=== PATIENT | female | born 1980 | race Caucasian/White ===

== ENCOUNTER 2016-11-19 18:24 | Inpatient (IN) | payer OTHER ==
[~2016-11-19] VITALS: Ht 163 cm; Wt 80.3 kg
[2016-11-19] MEDS ORDERED: PREN1TAB80 PO (18:53)
[2016-11-19] MEDS ORDERED: RINGERS SOLUTION,LACTATED 1,000 ML IV PRN (19:29)
[2016-11-19] MEDS ORDERED: OXYTOCIN 30 UNITS/LACT RINGERS 500 ML IV ONE (19:29)
[2016-11-19] MEDS ORDERED: CITRIC ACID/SODIUM CITRATE 30 ML SOLUTION UDCUP PO PRN (19:30)
[2016-11-19] MEDS ORDERED: METOCLOPRAMIDE HCL 5 MG/ML 2 ML VIAL IVP PRN (19:30)
[2016-11-19] MEDS ORDERED: FentaNYL CITRATE-PF 100 MCG/2 ML VIAL IVP PRN (19:30)
[2016-11-19 19:31] LABS: GLUCOSE COMMENT 1 Doctor Notified; GLUCOSE,POINT OF CARE 95 MG/DL (70-110)
[2016-11-19 19:53] LABS: BASOPHILS % (AUTO) 0.1 % (0.0-2.0); EOSINOPHILS % (AUTO) 0.2 % (1.0-6.0); HEMATOCRIT 38.2 % (36-46); HEMOGLOBIN 12.6 g/dL (12.0-16.0); LYMPHOCYTES # (AUTO) 1.7 K/uL (1.0-4.8); LYMPHOCYTES % (AUTO) 17.2 % (22.0-44.0); MEAN CORPUSCULAR HEMOGLOBIN 29.2 pg (26.0-34.0); MEAN CORPUSCULAR HGB CONC 32.9 G/dL (31.0-37.0); MEAN CORPUSCULAR VOLUME 89 fL (80-100); MONOCYTES # (AUTO) 0.7 K/uL (0.1-1.0); MONOCYTES % (AUTO) 6.7 % (2.0-9.0); NEUTROPHILS # (AUTO) 7.6 K/uL (1.8-7.7); NEUTROPHILS % (AUTO) 75.8 % (40.0-70.0); RED BLOOD CELL COUNT(AUTO) 4.31 MIL/uL (4.00-5.20); RED CELL DISTRIBUTION WIDTH 15.9 % (11.5-14.5); WHITE BLOOD COUNT (AUTO) 10.1 K/uL (4.5-11.0)
[2016-11-19] MEDS ORDERED: OXYGEN THERAPY IH SCH (20:00)
[2016-11-19 20:04] VITALS: BP 125/75
[2016-11-19] MEDS: RINGERS SOLUTION,LACTATED 1,000 ML IV SCH (20:22)
[2016-11-19] MEDS ORDERED: LIDOCAINE HCL/PF 2% 5 ML VIAL ONE (20:27)
[2016-11-19] MEDS ORDERED: BUPIVACAINE HCL/PF 0.25% 10 ML VIAL ONE (20:27)
[2016-11-19] MEDS ORDERED: FentaNYL/BUPIV 0.125%/NS/PF 200 ML ED ONE (20:28)
[2016-11-20] MEDS: RINGERS SOLUTION,LACTATED 1,000 ML IV SCH ×2 (00:49→09:56)
[2016-11-20] MEDS ORDERED: FentaNYL/BUPIV 0.125%/NS/PF 200 ML ED PRN (03:38)
[2016-11-20] MEDS ORDERED: PROMETHAZINE HCL 12.5 MG in SODIUM CHLORIDE 0.9% 50 ML IV PRN (03:45)
[2016-11-20] MEDS ORDERED: DiphenhydrAMINE HCL 50 MG/ML VIAL IVP PRN ×2 (03:45→13:15)
[2016-11-20] MEDS ORDERED: NALBUPHINE HCL 10 MG/ML VIAL IVP PRN ×4 (03:45→13:15)
[2016-11-20] MEDS ORDERED: OXYTOCIN 30 UNITS/LACT RINGERS 500 ML IV PRN (04:54)
[2016-11-20] MEDS ORDERED: LIDOCAINE HCL 2%/EPI 1:200,000/PF 10 ML VIAL ONE (10:27)
[2016-11-20] MEDS ORDERED: FentaNYL CITRATE-PF 100 MCG/2 ML VIAL IVP ONE (12:00)
[2016-11-20] MEDS ORDERED: GUM MASTIC/STORAX/MSAL/ALCOHOL LIQUID 0.67 ML VIAL TP ONE ×2 (12:10→12:38)
[2016-11-20] MEDS ORDERED: IBUPROFEN 800 MG TABLET PO PRN (13:00)
[2016-11-20] MEDS ORDERED: OxyCODONE HCL/ACETAMINOPHEN 5-325 MG TABLET PO PRN ×2 (13:00)
[2016-11-20] MEDS ORDERED: LANOLIN 7 GM OINTMENT TP PRN (13:00)
[2016-11-20] MEDS ORDERED: METHYLERGONOVINE MALEATE 0.2 MG TABLET PO PRN (13:00)
[2016-11-20] MEDS ORDERED: ONDANSETRON HCL 4 MG/2 ML VIAL IVP PRN (13:15)
[2016-11-20] MEDS ORDERED: OXYGEN THERAPY IH SCH ×3 (13:15)
[2016-11-20] MEDS ORDERED: MEPERIDINE-PF 25 MG/ML SYRINGE IVP PRN (13:15)
[2016-11-20] MEDS ORDERED: NALOXONE HCL 0.4 MG/ML VIAL IVP PRN (13:15)
[2016-11-20] MEDS: NALBUPHINE HCL 10 MG/ML VIAL IVP SCH ×2 (15:50→21:45)
[2016-11-20] MEDS: DEXTROSE 5%-LACTATED RINGERS 1,000 ML IV SCH (16:49)
[2016-11-20] MEDS: FentaNYL CITRATE-PF 100 MCG/2 ML VIAL IVP PRN ×2 (16:56→19:59)
[2016-11-20] MEDS: CeFAZolin 2 GM/DEXTROSE 50 ML IV SCH (19:59)
[2016-11-21] MEDS: DEXTROSE 5%-LACTATED RINGERS 1,000 ML IV SCH (01:46)
[2016-11-21] MEDS: NALBUPHINE HCL 10 MG/ML VIAL IVP SCH ×2 (03:57→09:47)
[2016-11-21] MEDS: CeFAZolin 2 GM/DEXTROSE 50 ML IV SCH (03:59)
[2016-11-21 06:55] LABS: BASOPHILS % (AUTO) 0.2 % (0.0-2.0); EOSINOPHILS % (AUTO) 0.2 % (1.0-6.0); HEMATOCRIT 32.9 % (36-46); HEMOGLOBIN 10.8 g/dL (12.0-16.0); LYMPHOCYTES # (AUTO) 1.3 K/uL (1.0-4.8); LYMPHOCYTES % (AUTO) 13.1 % (22.0-44.0); MEAN CORPUSCULAR HEMOGLOBIN 29.2 pg (26.0-34.0); MEAN CORPUSCULAR HGB CONC 32.7 G/dL (31.0-37.0); MEAN CORPUSCULAR VOLUME 89 fL (80-100); MONOCYTES # (AUTO) 0.6 K/uL (0.1-1.0); NEUTROPHILS # (AUTO) 7.9 K/uL (1.8-7.7); NEUTROPHILS % (AUTO) 80.5 % (40.0-70.0); RED BLOOD CELL COUNT(AUTO) 3.68 MIL/uL (4.00-5.20); RED CELL DISTRIBUTION WIDTH 15.7 % (11.5-14.5); WHITE BLOOD COUNT (AUTO) 9.9 K/uL (4.5-11.0)
[2016-11-21] MEDS: IBUPROFEN 800 MG TABLET PO SCH ×3 (12:47→23:58)
[2016-11-21] MEDS: MAGNESIUM HYDROXIDE SUSPENSION 30 ML UDCUP PO PRN (20:41)
[2016-11-21] MEDS: SENNA/DOCUSATE SODIUM 187-50 MG TABLET PO PRN (20:42)
[2016-11-22] MEDS: IBUPROFEN 800 MG TABLET PO SCH ×3 (06:01→18:18)
[2016-11-22] MEDS: SENNA/DOCUSATE SODIUM 187-50 MG TABLET PO PRN (09:26)
[2016-11-22] MEDS: MAGNESIUM HYDROXIDE SUSPENSION 30 ML UDCUP PO PRN (09:26)
[2016-11-22] MEDS ORDERED: HYDR-309 PO (11:56)
[2016-11-22] MEDS ORDERED: FERS325 PO (12:02)
[2016-11-22] MEDS ORDERED: DSS100 PO (12:06)
== END 2016-11-22 18:30 | disposition home or self-care (01) | DRG 766 ==
LOC: OBSVTOIN 18:24 → 4S 18:24
PROVIDERS: ADMIT Specialist; ATTEND Specialist
PROC: 10D00Z1 Extraction of Products of Conception, Low, Open Approach (ICD-10-PCS; principal; 2016-11-20)
PROC: 10907ZC Drainage of Amniotic Fluid, Therapeutic from Products of Conception, Via Natural or Artificial Opening (ICD-10-PCS; 2016-11-20)
DX: O77.0 Labor and delivery complicated by meconium in amniotic fluid (principal); O62.0 Primary inadequate contractions; O65.4 Obstructed labor due to fetopelvic disproportion, unspecified; O24.429 Gestational diabetes mellitus in childbirth, unspecified control; O09.513 Supervision of elderly primigravida, third trimester; Z3A.40 40 weeks gestation of pregnancy; Z37.0 Single live birth
CPT/HCPCS: 82962; 86850; 86900; 86901; J0690; J2300; J2590; J2765; J3010; J3490; J7120